=== PATIENT | male | born 1995 | race African-American/Black ===

== ENCOUNTER 2021-08-27 11:54 | Emergency (ER) | payer OTHER ==
[~2021-08-27] VITALS: Ht 177.8 cm; Wt 61.2 kg
[2021-08-27] MEDS ORDERED: NS 100ML 200 ML IV ONE (12:03)
[2021-08-27] MEDS ORDERED: ANCEF ONE (12:03)
[2021-08-27] MEDS ORDERED: MORPHINE SULFATE ONE (12:04)
[2021-08-27] MEDS ORDERED: BOOSTRIX IM ONE ×2 (12:04→12:30)
[2021-08-27] MEDS ORDERED: ANCEF IV STA (12:05)
[2021-08-27] MEDS ORDERED: MORPHINE SULFATE IV STA (12:05)
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
[2021-08-27 12:30] VITALS: BP 141/93
[2021-08-27] MEDS ORDERED: SODIUM CHLORIDE IRR BOTTLE IR ONE (13:07)
--- NOTE | 2021-08-27 13:23 | DIREP ---
PROCEDURE:XRAY FOREARM 2 VWS-LT COMPARISON:None. INDICATIONS:pain/injury FINDINGS: BONES:Normal. JOINTS:Normal. SOFT TISSUES:Soft tissue injury dorsal forearm/elbow junction with a least 2 soft tissue foreign bodies. OTHER:No additional findings. CONCLUSION:Injury to the soft tissues of the dorsal forearm/elbow junction with at least 2 foreign bodies. Dictated by: Harvey Falcon M.D. on 08/27/2021 at 01:20 PM
--- NOTE | 2021-08-27 13:25 | DIREP ---
PROCEDURE:XRAY HAND MIN 3 VW-LT COMPARISON:None. INDICATIONS:pain/injury FINDINGS: BONES:Normal. JOINTS:Normal. SOFT TISSUES:Small ossicle of the tip of the ulnar styloid process. OTHER:No additional findings. CONCLUSION:No visible acute fracture. Dictated by: Harvey Falcon M.D. on 08/27/2021 at 01:23 PM
--- NOTE | 2021-08-27 13:26 | DIREP ---
PROCEDURE:XRAY SHOULDER MIN 2 VWS-LT COMPARISON:None. INDICATIONS:pain/injury FINDINGS: BONES:Normal. JOINTS:Normal glenohumeral and acromioclavicular joints. No evidence for dislocation. SOFT TISSUES:Normal. OTHER:Normal. CONCLUSION:No acute visible fracture. See above description. Dictated by: Harvey Falcon M.D. on 08/27/2021 at 01:25 PM
--- NOTE | 2021-08-27 13:26 | DIREP ---
PROCEDURE:XRAY ELBOW 2VWS-LT COMPARISON:None. INDICATIONS:pain/injury FINDINGS: BONES:Normal. JOINTS:Normal. No displaced anterior or posterior fat pads. SOFT TISSUES:Dorsal soft tissue injury just below the elbow with at least 2 opaque foreign bodies. OTHER:Normal. CONCLUSION:Dorsal soft tissue injury just below the elbow with a least 2 foreign bodies. Dictated by: Harvey Falcon M.D. on 08/27/2021 at 01:24 PM
[2021-08-27] MEDS ORDERED: TRIPLE ANTIBIOTIC OINTMENT TP ONE (13:47)
[2021-08-27 14:29] VITALS: BP 125/74
== END 2021-08-27 14:44 | disposition home or self-care (01) ==
LOC: ER 11:54
DX: S61.213A Laceration without foreign body of left middle finger without damage to nail, initial encounter (principal); S51.012A Laceration without foreign body of left elbow, initial encounter; S49.92XA Unspecified injury of left shoulder and upper arm, initial encounter; S69.92XA Unspecified injury of left wrist, hand and finger(s), initial encounter; V49.9XXA Car occupant (driver) (passenger) injured in unspecified traffic accident, initial encounter; Y93.89 Activity, other specified; Y92.89 Other specified places as the place of occurrence of the external cause; Y99.8 Other external cause status
CPT/HCPCS: 73030; 73070; 73090; 73130; 90471; 90715; 96374; 96375; 99284; A4217; J0690; J2270